=== PATIENT | female | born 1960 | race Caucasian/White ===

== ENCOUNTER 2016-10-22 17:47 | Emergency (ER) | payer OTHER ==
--- NOTE | 2016-10-22 18:00 | UC ---
Skin Complaint HPI - HPI Summary HPI Summary: 56 year old female presents with skin complaint. Her sx present x3 weeks-- started with small red spot on left lower leg, saw PCP 10/19/16 for an abscess on chin, had PCP look at leg, started on Augmentin 875 mg bid; since then redness has increased in left leg, hot to touch. Recent exposure to MRSA last week and her daughter and grand daughter has MRSA currently. patient has IDDM-2 and smokes. no fevers. [ End ] - History of Current Complaint Time Seen by Provider: 10/22/16 17:57 Stated Complaint: LEFT LEG SKIN COMPLAINT Hx Obtained From: Patient Hx Last Menstrual Period: NOV 2011, HAS BEEN SPOTTING THIS WEEK Onset/Duration: Gradual Onset - 2 days Skin Exposure Onset/Duration: Days Ago Aggravating: Touch Alleviating: Nothing Associated Signs & Symptoms: Positive: Negative, Tenderness - Allergy/Home Medications Allergies/Adverse Reactions: Allergies Allergy/AdvReac Type Severity Reaction Status Date / Time Bupropion [From Wellbutrin] Allergy Severe ANXIETY, Verified 10/22/16 18:06 SOB, RAPID HEART BEAT. Fluoxetine [From Prozac] Allergy Severe HOMICIDAL Verified 10/22/16 18:06 Nicotine [From Nicoderm] Allergy Severe ANXIETY, Verified 10/22/16 18:06 SOB ,RAPID HEART RATE Zolpidem [From Ambien] Allergy Severe HALLUCINATIONS, Verified 10/22/16 18:06 ANXIETY Aripiprazole [From Abilify] AdvReac leg/toe Verified 10/22/16 18:06 twitching, jaw clicked Home Medications: Home Medications Amoxicillin/Clavulanate TAB* [Augmentin TAB 875*] 875 mg PO BID 10/22/16 [ History Confirmed 10/22/16] Torsemide TAB* [Demadex*] 100 mg PO DAILY 10/22/16 [History Confirmed 10/22/16] Review of Systems Skin: Other - redness to the area on the leg and recent abscess on the chin All Other Systems Reviewed And Are Negative: Yes PMH/Surg Hx/FS Hx/Imm Hx Previously Healthy: Yes Endocrine History: Diabetes, Dyslipidemia Psychological History: Anxiety - Surgical History Surgical History: Yes Surgery Procedure, Year, and Place: TONSILS. RT KNEE TUMOR REMOVED. GASTRIC BYPASS. TUBAL - Family History Known Family History: Positive: None - Social History Occupation: Employed Full-time Alcohol Use: None Substance Use Type: None Smoking Status (MU): Current Every Day Smoker Type: Cigarettes Amount Used/How Often: 1 PPD Have You Smoked in the Last Year: Yes Household Exposure Type: Cigarettes Physical Exam Triage Information Reviewed: Yes Appearance: Well-Appearing, No Pain Distress, Well-Nourished, Obese Vital Signs Reviewed: Yes Eye Exam: Normal ENT Exam: Normal Neck exam: Normal Respiratory Exam: Normal Cardiovascular Exam: Normal Musculoskeletal Exam: Normal Neurological Exam: Normal Psychological Exam: Normal Skin Exam: Other - chin with 1x1 cm raised fluctunt abscess that had serosanguinous discharge and mild tenderness to palpation with some darker redness -- per pt much improved over the past 2 days . Skin: Positive: Other - redness and erythema anterior madera with central area of mild fluctuance and tenderness to palpation. no streaking. neg homans. approx 5x5 or so and it was outlined. Course/Dx - Course Course Of Treatment: Start doxy to cover MRSA at this time with her recent exposure from her family and if her redness / erythema spreads then go to the ED and it was outlined at this time. Go to PCP tomorrow. She states he BS was 110 today and no fever . Nothing to I&D on the leg. Draining already in the chin . She is aware and agreeable to plan - Diagnoses Provider Diagnoses: Cellulitis Discharge - Discharge Plan Condition: Good Disposition: HOME Prescriptions: DOXYcycline CAP(*) [DOXYcycline 100MG CAP(*)] 100 mg PO BID #20 cap Patient Education Materials: Cellulitis (ED) Referrals: Anahi Ariza PA [Primary Care Provider] - 1 Day Additional Instructions: IF YOUR SYMPTOMS WORSEN OVER NIGHT PLEASE GO TO THE EMERGENCY DEPARTMENT
[2016-10-22 18:02] VITALS: BP 110/57
== END 2016-10-22 18:53 | disposition home or self-care (01) ==
LOC: UCCORT 17:47
DX: L03.90 Cellulitis, unspecified (principal); Z20.89 Contact with and (suspected) exposure to other communicable diseases; E11.9 Type 2 diabetes mellitus without complications; E78.5 Hyperlipidemia, unspecified; F41.9 Anxiety disorder, unspecified; Z72.0 Tobacco use
CPT/HCPCS: 99212; G0463

== ENCOUNTER 2017-10-12 19:37 | Emergency (ER) | payer OTHER ==
[2017-10-12 19:56] VITALS: BP 121/70
--- NOTE | 2017-10-12 20:05 | UC ---
Shortness of Breath HPI - HPI Summary HPI Summary: Patient is a 57-year-old female presents here with a 2 week history of progressively worsening dyspnea. States that initially she had a 1 to 2 day history of high fever and shaking chills associated with cough. Had left lateral chest pain and left back pain. The past 4 days her dyspnea has increased markedly. She has chronic lower extremity edema and denies any increase in swelling. She is a diabetic. and uses a walker - History of Current Complaint Chief Complaint: UCRespiratory Stated Complaint: SOB Time Seen by Provider: 10/12/17 19:52 Hx Obtained From: Patient Hx Last Menstrual Period: NOV 2011, HAS BEEN SPOTTING THIS WEEK Onset/Duration: Gradual Onset, Lasting Weeks Timing: Constant Current Severity: Severe Dyspnea At: Rest Aggrevating Factors: Nothing Alleviating Factors: Nothing Associated Signs & Symptoms: Positive: Cough (Nonproductive), Fever, Chills, Edema - stable Related History: Obesity - Allergy/Home Medications Allergies/Adverse Reactions: Allergies Allergy/AdvReac Type Severity Reaction Status Date / Time bupropion [From Wellbutrin] Allergy anxiety, Verified 07/19/17 09:21 shortness of breath, heart races fluoxetine [From Prozac] Allergy HOMICIDAL Verified 07/19/17 09:21 nicotine [From Nicoderm CQ] Allergy anxiety, Verified 07/19/17 09:21 shortness of breath, heart racing zolpidem [From Ambien] Allergy anxiety,mary Verified 07/19/17 09:21 licinations aripiprazole [From Abilify] AdvReac leg/toe Verified 07/19/17 09:21 twitching, jaw clicking baclofen AdvReac Hallucinati Verified 07/19/17 09:21 ons PMH/Surg Hx/FS Hx/Imm Hx Previously Healthy: No - RA Endocrine History: Diabetes, Dyslipidemia Cardiovascular History: Hypertension - Surgical History Surgical History: Yes Surgery Procedure, Year, and Place: TONSILS. RT KNEE TUMOR REMOVED. GASTRIC BYPASS. TUBAL. LOWER LEFT LEG FROM CELLULITIS D/T SPIDER BITE - Family History Known Family History: Positive: None - Social History Alcohol Use: Occasionally Alcohol Amount: 3 drinks per month Substance Use Type: None Smoking Status (MU): Current Every Day Smoker Type: Cigarettes Amount Used/How Often: 1/2 PPD Have You Smoked in the Last Year: Yes Household Exposure Type: Cigarettes Review of Systems Constitutional: Fever, Chills Skin: Negative Eyes: Negative ENT: Negative Respiratory: Shortness Of Breath, Cough Cardiovascular: Chest Pain, Other - back pain Gastrointestinal: Negative Genitourinary: Negative Motor: Negative Neurovascular: Negative Musculoskeletal: Edema Neurological: Negative Psychological: Negative Is Patient Immunocompromised?: No All Other Systems Reviewed And Are Negative: Yes Physical Exam Triage Information Reviewed: Yes Appearance: Ill-Appearing, Obese Vital Signs: Initial Vital Signs Temp 97.1 F 10/12/17 19:51 Pulse 93 10/12/17 19:51 Resp 58 10/12/17 19:51 BP 121/70 10/12/17 19:51 Pulse Ox 87 10/12/17 19:51 Eyes: Positive: Conjunctiva Clear ENT: Positive: Hearing grossly normal. Negative: Nasal congestion, Nasal drainage, Muffled voice, Hoarse voice Neck: Positive: Supple Respiratory: Positive: Respiratory distress, Accessory muscle use, Crackles - L base, Other: - tachypneic , speaking in fragmented sentences. Negative: Lungs clear Cardiovascular: Positive: RRR Abdomen Description: Positive: Nontender Bowel Sounds: Positive: Present Musculoskeletal: Positive: Edema @ - pre tibia; Neurological: Positive: Alert Diagnostics - Laboratory Diagnostic Studies Completed/Ordered: O2 87 % on room air comment : hypoxic - EKG Cardiac Rate: NL Cardiac Rhythm: Sinus: Normal, LBBB: Normal Ectopy: PACs ST Segment: Normal Shortness of Breath Dx - Course Course Of Treatment: D/W Dr. Lanza. To [facility] ED via EMS - Differential Dx/Diagnosis Provider Diagnoses: Dyspnea/hypoxia of uncertain cause Discharge - Sign-Out/Discharge Documenting (check all that apply): Patient Departure All imaging exams completed and their final reports reviewed: No Studies - Discharge Plan Condition: Guarded Disposition: TRANS HIGHER LVL OF CARE FAC Referrals: Anahi Ariza PA [Primary Care Provider] - - Billing Disposition and Condition Condition: GUARDED Disposition: Trans Higher Lvl of Care Fac
== END 2017-10-12 20:10 | disposition short-term general hospital (02) ==
LOC: UCCORT 19:37
DX: R06.00 Dyspnea, unspecified (principal); R09.02 Hypoxemia; R05 Cough; R50.9 Fever, unspecified; R60.0 Localized edema; E11.9 Type 2 diabetes mellitus without complications; I10 Essential (primary) hypertension; F17.210 Nicotine dependence, cigarettes, uncomplicated; R06.02 Shortness of breath; R07.9 Chest pain, unspecified; M54.9 Dorsalgia, unspecified; Z88.1 Allergy status to other antibiotic agents; Z88.8 Allergy status to other drugs, medicaments and biological substances
CPT/HCPCS: 99213; G0463